=== PATIENT | male | born 1990 | race Caucasian/White ===

== ENCOUNTER → 2022-05-10 12:47 | Outpatient (BNVA) | payer OTHER, SELFPAY | PROVIDERS: Visit Provider Internal Medicine | DX: M25.512 Pain in left shoulder (principal); M54.50 Low back pain, unspecified; M25.562 Pain in left knee; Z91.81 History of falling | CPT/HCPCS: 99203 ==

== ENCOUNTER → 2022-05-14 09:10 | Outpatient (BNVA) | payer OTHER, SELFPAY | PROVIDERS: Visit Provider Internal Medicine | DX: M25.512 Pain in left shoulder (principal); M54.50 Low back pain, unspecified; M25.562 Pain in left knee; Z91.81 History of falling | CPT/HCPCS: 99213 ==

== ENCOUNTER → 2022-05-15 10:31 | Outpatient (BNVA) | payer OTHER, SELFPAY | PROVIDERS: Visit Provider Physician Assistant Medical | DX: M54.50 Low back pain, unspecified (principal) | CPT/HCPCS: 99213 ==

== ENCOUNTER → 2022-05-17 09:51 | Outpatient (BNVA) | payer OTHER, SELFPAY | PROVIDERS: Visit Provider Internal Medicine | DX: S39.012D Strain of muscle, fascia and tendon of lower back, subsequent encounter (principal); W00.0XXD Fall on same level due to ice and snow, subsequent encounter | CPT/HCPCS: 72100; 99213 ==

== ENCOUNTER 2022-05-20 07:04 | Outpatient (RCR) | payer OTHER, SELFPAY ==
--- NOTE | 2022-05-20 09:12 | MHC.PT.EP ---
[facility] [place] [facility] [place] [facility] [place] Office [address] Abiodun Quinones [address] [phone] F: [phone] F: [phone] F: [phone] F: [phone] Physical Therapy Plan of Care Date of Evaluation: Date of Surgery: Diagnosis: LOW BACK / Rt SI Jt PAIN S/P FALL Assessment: 32 YO MALE REF TO PT FOR LBP/ Rt SI Jt PAIN S/P FALLING ON ICE AT WORK 05/09/22. OF IMPORTANCE, Pt UNDERWENT ORIF LEFT TIBIAL PLATEAU FX ON 11/2021 AND HE HAS BEEN WORKING ON REGAINING STRENGTH AND MOBILITY. 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 OBJECTIVE FINDINGS: LIMITED TRUNK AROM, DECR HIP AND HS FLEXIB, AROM DEFICITS LEFT KNEE IMPACTING PELVIC SYMM, (+) TISSUE TENSION / IRRIT IN HERON LS AND Rt SI Jt WELL (+) TISSUE IRRIT IN THORACOLUMBAR JUNCTION (MILD C-CURVE INFLUENCE). 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 Pt CURRENTLY DENIES RADICULAR SXS. HE WOULD BENEFIT FROM PT TO ADDRESS THE ABOVE FINDINGS, DEV A PROGRESSIVE HEP, GUIDE IN RTW, AND PAIN/ SX MGMT. Frequency and Duration: The patient will be seen 2 x WK x 5 WKS Short Term Goals: *DECR LB/Rt SI Jt PAIN TO 2-3/10 AT MAX *Pt INDEP SELF-CORRECT POSTURE *Pt DEMON WFL FUNCTIONAL SQUAT *Pt DEMON WFL TRUNK AROM AND HIP FLEXIBILITY Mcc Goals: *Pt INDEP W HEP AND SELF-SX MGMT TECHN *Pt RTW REG DUTY AND RESUME REG ADLs EVIDENT W IMPROVED OSWESTRY SCORE (AT EVAL 05/20/22 15/50) *Pt DEMON 3:3 SIMUL WORK TASKS W PROPER TECHN AND W/O LIMITING LBP Treatment Plan: Modalities to reduce pain, spasms and effusion. Manual therapy to restore motion and function. Therapeutic exercise to improve strength and flexibility. Neuromuscular re-education for posture and balance. Therapeutic activities to return to functional activities of daily living. Electronically signed by: JACKSON MASON PT Please sign and return to therapist. Thank you for your referral.
--- NOTE | 2022-06-13 15:26 | MHC.PT.DC ---
[facility] [place] Office [place] Office [place] Office [address] Abiodun Quinones [address] [phone] F: [phone] F: [phone] F: [phone] F: [phone] Physical Therapy Discharge Report Diagnosis: LOW BACK / Rt SI Jt PAIN S/P FALL Date of Surgery: Date of Evaluation: 05/20/22 Date of Discharge: 06/13/22 Treatments to Date: 1 Cancellations to Date: 0 No Shows to Date: 0 Discharge Status: Visit Non-compliance Discharge Summary: Pt D/C AT THIS TIME DUE TO POOR ATTENDANCE. HE DID NOT MEET HIS PT GOALS. Electronically signed by: JACKSON MASON,PT Please sign and return to therapist. Thank you for your referral.
== END 2022-06-13 15:27 | disposition home or self-care (01) ==
LOC: HO.PT 07:04
PROVIDERS: Visit Provider Physician Assistant Medical
DX: M54.50 Low back pain, unspecified (principal)
CPT/HCPCS: 97110; 97162; 97530

== ENCOUNTER → 2022-05-20 08:22 | Outpatient (BNVA) | payer OTHER, SELFPAY | PROVIDERS: Visit Provider Internal Medicine | DX: S39.012D Strain of muscle, fascia and tendon of lower back, subsequent encounter (principal); X58.XXXD Exposure to other specified factors, subsequent encounter | CPT/HCPCS: 99213 ==

== ENCOUNTER → 2022-06-07 13:02 | Outpatient (BNVA) | payer OTHER, SELFPAY | PROVIDERS: Visit Provider Internal Medicine | DX: M54.9 Dorsalgia, unspecified (principal) | CPT/HCPCS: 99213 ==